=== PATIENT | male | born 1985 ===

== ENCOUNTER 2018-10-31 18:11 | Inpatient (IN) | payer OTHER ==
[2018-10-31 18:37] VITALS: BMI 31.5
--- NOTE | 2018-10-31 19:40 | ED PDOC ---
Arrival/HPI <AmandoMatias - Last Filed: 10/31/18 21:46> - General Historian: Patient - History of Present Illness Narrative History of Present Illness (Text): 10/31/18 19:38 33 yo M presents to the ER after injuring his L knee during a basketball game today. He went to [facility], had XRs done, told he had a patella dislocation, they attempted to reduce without success and was sent to the ER for further evaluation. Patient has a copy of his XRs with him. Otherwise he reports no distal numbness, no other injury, no LOC, no other joint pain. Has no other complaints. PMD Ali <Pham Mckay PA-C - Last Filed: 10/31/18 23:12> - General Chief Complaint: Lower Extremity Problem/Injury Time Seen by Provider: 10/31/18 18:40 Past Medical History - Infectious Disease Hx of Infectious Diseases: None - Psychiatric Hx Substance Use: No <Pham Mckay PA-C - Last Filed: 10/31/18 23:12> Family/Social History Family/Social History: No Known Family HX Smoking Status: Current Some Days Smoker Hx Alcohol Use: Yes Frequency of alcohol use: Socially Hx Substance Use: No <Pham Mckay PA-C - Last Filed: 10/31/18 23:12> Allergies/Home Meds <AmandoMatias - Last Filed: 10/31/18 21:46> <Pham Mckay PA-C - Last Filed: 10/31/18 23:12> Allergies/Adverse Reactions: Allergies No Known Allergies Allergy (Verified 10/31/18 18:37) Review of Systems - Review of Systems Constitutional: absent: Fatigue, Fevers Respiratory: absent: SOB, Cough Cardiovascular: absent: Chest Pain, Palpitations Gastrointestinal: absent: Abdominal Pain, Diarrhea, Vomiting Genitourinary Male: absent: Dysuria, Frequency Musculoskeletal: Arthralgias, Joint Swelling. absent: Back Pain, Neck Pain Skin: absent: Rash, Pruritis, Skin Lesions Neurological: absent: Headache, Dizziness <Pham Mckay PA-C - Last Filed: 10/31/18 23:12> Physical Exam Vital Signs Temp Pulse Resp BP Pulse Ox 10/31/18 18:11 99.2 F 75 18 122/68 98 <Matias Goel - Last Filed: 10/31/18 21:46> Vital Signs Temp Pulse Resp BP Pulse Ox 10/31/18 18:11 99.2 F 75 18 122/68 98 Temperature: Afebrile Blood Pressure: Normal Pulse: Regular Respiratory Rate: Normal Appearance: Positive for: Well-Appearing, Non-Toxic, Comfortable Pain Distress: None Mental Status: Positive for: Alert and Oriented X 3 - Systems Exam Head: Present: Atraumatic, Normocephalic Pupils: Present: PERRL Extroacular Muscles: Present: EOMI Conjunctiva: Present: Normal Mouth: Present: Moist Mucous Membranes Neck: Present: Normal Range of Motion Respiratory/Chest: Present: Clear to Auscultation, Good Air Exchange. No: Respiratory Distress, Accessory Muscle Use Cardiovascular: Present: Regular Rate and Rhythm, Normal S1, S2. No: Murmurs Abdomen: No: Tenderness, Distention, Peritoneal Signs Back: Present: Normal Inspection Upper Extremity: Present: Normal Inspection. No: Cyanosis, Edema Lower Extremity: Present: NORMAL PULSES, Swelling (+edema to the L knee, patella noted to be dislocated, patient unable to flex the knee, the L leg is fully extended at this time), Deformity, Neurovascularly Intact, Capillary Refill < 2 s. No: Temperature Abnormalties Neurological: Present: GCS=15, CN II-XII Intact, Speech Normal, Normal Sensory Function Skin: Present: Warm, Dry, Normal Color. No: Rashes Psychiatric: Present: Alert, Oriented x 3, Normal Insight, Normal Concentration <Pham Mckay PA-C - Last Filed: 10/31/18 23:12> Medical Decision Making - RAD Interpretation Radiology Orders: 10/31/18 18:49 KNEE WITH PATELLA LEFT 3 VIEW [RAD] Stat 10/31/18 19:34 EXT LOWER W/O CONTRAST LEFT [CT] Stat <Matias Goel - Last Filed: 10/31/18 21:46> ED Course and Treatment: 10/31/18 19:35 XR L knee ordered. XR L knee : +high rising patella, no fracture. Case d/w Dr. Rhodes, recommends, CT of the LLE, to place a knee immobilizer. CT scan of LLE ordered. 10/31/18 21:02 Case d/w Dr. Rhodes, he agrees to admit the patient and plan to do the surgery on Friday. Request that the patient be admitted under the medical service for medical clearance. IV, Labs, EKG, CXR ordered. Case d/w Dr. Gomez, agrees to admit the patient. EKG: NSR at 67 bpm, (-) acute ST changes, as read by PA. CXR : NAD, as read by PA Labs reviewed and noted to be within normal limits. EXAM: CT left Knee, without IV contrast IMPRESSION: 1. Slight supralateral dislocation of the patellarelative to the knee joint. 2. Marked anterolateral prepatellar soft tissue swelling noted. 3. Anteromedial infrapatellar subcutaneous hematoma is present. 4. A small suprapatellar effusion is noted. Electronically signed on October 31, 2018 9:51:56 PM EDT by: Ceasar Kebede M.D., M.B.A., Certified By [employer] Trained MRI and CT Specialist - RAD Interpretation Radiology Orders: 10/31/18 18:49 KNEE WITH PATELLA LEFT 3 VIEW [RAD] Stat 10/31/18 19:34 EXT LOWER W/O CONTRAST LEFT [CT] Stat <Pham Mckay PA-C - Last Filed: 10/31/18 23:12> - PA / CLINICAL APPLICATIONS MANAGER / Resident Statement RITA has reviewed & agrees with the documentation as recorded. RITA has examined the patient and agrees with the treatment plan. <Matias Goel - Last Filed: 10/31/18 21:46> - PA / CLINICAL APPLICATIONS MANAGER / Resident Statement RITA has reviewed & agrees with the documentation as recorded. <Pham Mckay PA-C - Last Filed: 10/31/18 23:12> Disposition/Present on Arrival <Matias Goel - Last Filed: 10/31/18 21:46> - Present on Arrival Any Indicators Present on Arrival: No History of DVT/PE: No History of Uncontrolled Diabetes: No Urinary Catheter: No History of Decub. Ulcer: No History Surgical Site Infection Following: None - Disposition Have Diagnosis and Disposition been Completed?: Yes Disposition Time: 21:00 Patient Plan: Admission <Pham Mckay PA-C - Last Filed: 10/31/18 23:12> - Disposition Diagnosis: Dislocation of left patella, Patellar tendon rupture Disposition: HOSPITALIZED Patient Problems: Current Active Problems Problem Status Onset Dislocation of left patella Acute Patellar tendon rupture Acute Condition: STABLE
[2018-10-31 21:37] LABS: BASO # 0.04 K/mm3 (0.0-2.0); BASO % 0.4 % (0.0-3.0); EOS % 0.2 % (1.5-5.0); HEMOGLOBIN 14.1 g/dL (14.0-18.0); LYMPH # 2.1 (1.2-3.4); LYMPH % 20.9 % (22.0-35.0); MEAN CELL VOLUME 87.3 fl (80.0-105.0); MEAN CORPUSCULAR HEMOGLOBIN 29.8 pg (25.0-35.0); MEAN CORPUSCULAR HGB CONC 34.1 g/dl (31.0-37.0); MEAN PLATELET VOLUME 10.3 fl (7.0-11.0); MONO # 0.7 (0.1-0.6); MONO % 7.4 % (1.0-6.0); RBC 4.73 10^6/uL (3.5-6.1); RED CELL DISTRIBUTION WIDTH 13.5 % (11.5-14.5); WHITE BLOOD COUNT 9.8 10^3/uL (4.5-11.0)
[2018-10-31 21:46] LABS: INR 1.05; PARTIAL THROMBOPLASTIN TIME 34.4 Seconds (26.9-38.3); PROTHROMBIN TIME 11.7 SECONDS (9.4-12.5)
[2018-10-31 22:19] LABS: ALB/GLOB RATIO 1.4 (1.1-1.8); ALBUMIN 4.2 g/dL (3.0-4.8); ALT/SGPT 18 U/L (7-56); AST/SGOT 40 U/L (17-59); BLOOD UREA NITROGEN 17 mg/dL (7-21); CALCIUM 8.9 mg/dL (8.4-10.5); GFR NON-AFRICAN AMERICAN > 60
--- NOTE | 2018-11-01 01:01 | HP ---
DATE OF EXAM: 10/31/2018 HISTORY OF PRESENT ILLNESS: This is a 33-year-old man who injured his left knee during a basketball game, [facility]. He had a patellar dislocation, they attempted to reduce it and sent to the emergency room. He needs to have surgery for that orthopedic doctors, they told the ER nurse and doctor that they are going put him in the hospital and do surgery in the next 24 to 36 hours. They put him on my service, I am on-call today. FAMILY HISTORY: No known family history. SOCIAL HISTORY: He currently smokes cigarettes. Does drink alcohol. No substance abuse. ALLERGIES: NO KNOWN DRUG ALLERGIES. REVIEW OF SYSTEMS: He tells me he has a history of testicular cancer, diabetes, hypertension in the family. He has no fatigue. No fevers. No cough. No shortness of breath. No chest pain. No palpitations. No abdominal pain, nausea, vomiting, diarrhea. No problems urinating. The left knee is very swollen and tender. No rashes or ulcers. No headache. No dizziness. PHYSICAL EXAMINATION: VITAL SIGNS: Temperature 99.2, pulse 75, respiratory rate 18, blood pressure 122/63, O2 saturation 98% room air. GENERAL: He is a well appearing, nontoxic, comfortable. Alert and oriented x3. HEENT: Head is atraumatic and normocephalic. Extraocular muscles are intact. Pupils equally reactive to light and accommodation. Throat is moist. NECK: Supple. HEART: Regular rate. Normal S1 and S2. LUNGS: Clear to auscultation bilaterally. ABDOMEN: Soft and nontender. Positive bowel sounds. EXTREMITIES: Swelling of the left knee, very swollen. Left patella noted to be dislocated, very swollen and tender. NEUROLOGIC: GCS is 15. Cranial nerves II through XII grossly intact. Speech is normal. Alert and oriented x3. SKIN: Warm and dry. LABORATORY DATA: High riding patella no fracture on x-ray of the knee. IMPRESSION AND PLAN: Doctor recommend to place the left knee immobilizer. Obtain medical clearance and Cardiology clearance before the surgery due to dislocation of left patella. He is in pain meds, Lovenox. Cardiology clearance. Ortho evaluation. We will watch him closely. Nicholas Gomez DO [facility] # [id number] KATY
[2018-11-01 07:45] LABS: HEMOGLOBIN 13.4 g/dL (14.0-18.0); MEAN CELL VOLUME 87.9 fl (80.0-105.0); MEAN CORPUSCULAR HEMOGLOBIN 29.1 pg (25.0-35.0); MEAN CORPUSCULAR HGB CONC 33.1 g/dl (31.0-37.0); MEAN PLATELET VOLUME 10.1 fl (7.0-11.0); RBC 4.61 10^6/uL (3.5-6.1); RED CELL DISTRIBUTION WIDTH 13.6 % (11.5-14.5)
[2018-11-01 08:19] LABS: ALB/GLOB RATIO 1.3 (1.1-1.8); ALBUMIN 3.9 g/dL (3.0-4.8); ALT/SGPT 24 U/L (7-56); AST/SGOT 28 U/L (17-59); BLOOD UREA NITROGEN 20 mg/dL (7-21); CALCIUM 8.8 mg/dL (8.4-10.5); GFR NON-AFRICAN AMERICAN > 60
--- NOTE | 2018-11-01 09:42 | CT ---
Date of service: 10/31/2018 PROCEDURE: Left lower extremity CT. HISTORY: L knee injury, patella dislocation COMPARISON: October 31, 2018. Plain film radiographs left knee TECHNIQUE: Unenhanced study. 2.5 mm axial acquisition and display. Coronal and sagittal reconstructions. Dose report (mGy-cm): 491.78 FINDINGS: Superior dislocation of the patella relative to the femur. Large infrapatellar hematoma. Complex suprapatellar effusion with multiple loculations of fluid/hemorrhage. Contusion/soft tissue swelling at the expected location of the patellar tendon. No acute fracture. IMPRESSION: Dislocated patella relative to the femur. Complex joint effusion. Soft tissue swelling attests to the acuity of the fracture. Concordant results (preliminary interpretation) provided by [facility]IRGEN QUINTERO. Procedure Completed: 20:54. Preliminary Report: Interpreted and electronically signed: 21:51. Final Interpretation: 09:38. November 01, 2018.
--- NOTE | 2018-11-01 09:42 | RAD ---
Date of service: 10/31/2018 HISTORY: pre-op COMPARISON: No prior. FINDINGS: LUNGS: No active pulmonary disease. PLEURA: No significant pleural effusion identified, no pneumothorax apparent. CARDIOVASCULAR: No atherosclerotic calcification present Normal. OSSEOUS STRUCTURES: No significant abnormalities. VISUALIZED UPPER ABDOMEN: Normal. OTHER FINDINGS: None. IMPRESSION: No active disease.
[2018-11-01] MEDS: Enoxaparin 40 mg Syringe SC SCH (10:16)
--- NOTE | 2018-11-01 10:46 | CARD ---
APPROVED REPORT Date of service: 10/31/2018 EKG Measurement Heart [id number] <Conclusion> Normal sinus rhythm Normal Electrocardiogram
--- NOTE | 2018-11-01 11:32 | RAD ---
Date of service: 10/31/2018 PROCEDURE: Left Knee Radiographs. HISTORY: Pain. COMPARISON: October 31, 2018. CT left knee. TECHNIQUE: 2 views obtained. FINDINGS: BONES: Redemonstration patellar dislocation. JOINTS: Normal. No osteoarthritis. JOINT EFFUSION: None. OTHER FINDINGS: Soft tissue swelling attests to the acuity of the dislocation. IMPRESSION: Acute dislocation left knee.
--- NOTE | 2018-11-01 14:54 | PN ---
DATE: 11/01/2018 SUBJECTIVE: He had an accident playing basketball and dislocated his left knee. He is here for a procedure to be done on Friday. I was told that the orthopedic doctor, Dr. Mccormick, told the emergency room doctor he will do the procedure on 11/02/2018, so I am watching in the floor, it is very painful, swollen left leg. MEDICATIONS: He is on Lovenox, Toradol, Tylenol. PHYSICAL EXAMINATION: VITAL SIGNS: He has a 98.2 temperature, 70 pulse, 103/64 blood pressure, 16 respiratory rate, 90% O2 sat on room air. HEENT: Head is atraumatic, normocephalic. HEART: Regular rate. LUNGS: Decreased breath sounds. ABDOMEN: Soft. EXTREMITIES: The left leg is completely swollen. LABORATORY DATA: He has a 8 white count, 13.4 hemoglobin, 40.5 hematocrit with a 218 platelets. INR is 1.05. Sodium 140, potassium 3.8, BUN 20, creatinine is 1, GFR is greater than 60, sugar is 93, calcium is 8.8, total bili is 0.3. AST is 28, ALT is 24, alk phos 57, total protein 6.8. He had a chest x-ray that showed no active disease. He had an EKG which showed normal sinus rhythm. He had a lower extremity CAT scan, which finally reported, dislocated patella, relative to the femur, soft tissue swelling. I test the acuity of the fracture, also has the knee x-ray, showed acute dislocation of the left knee. I understand the plan is a procedure tomorrow, surgery with Dr. Mccormick, orthopedic doctors. We will watch him closely and that is the plan. Hopefully, he will do well. He is medically cleared to optimize for the procedure. Nicholas Gomez DO
[2018-11-02 07:22] LABS: HEMOGLOBIN 13.6 g/dL (14.0-18.0); MEAN CELL VOLUME 87.7 fl (80.0-105.0); MEAN CORPUSCULAR HEMOGLOBIN 29.4 pg (25.0-35.0); MEAN CORPUSCULAR HGB CONC 33.5 g/dl (31.0-37.0); RBC 4.63 10^6/uL (3.5-6.1); RED CELL DISTRIBUTION WIDTH 13.6 % (11.5-14.5); WHITE BLOOD COUNT 5.6 10^3/uL (4.5-11.0)
[2018-11-02 07:44] LABS: ALB/GLOB RATIO 1.3 (1.1-1.8); ALBUMIN 3.8 g/dL (3.0-4.8); ALT/SGPT 18 U/L (7-56); AST/SGOT 20 U/L (17-59); BLOOD UREA NITROGEN 15 mg/dL (7-21); CALCIUM 8.5 mg/dL (8.4-10.5); GFR NON-AFRICAN AMERICAN > 60
--- NOTE | 2018-11-02 09:48 | MRI ---
MRI left knee HISTORY: Displaced patella. COMPARISON: CT dated 10/31/2018 Technique: Multi-echo multiplanar sequences were performed through the left knee without the use of intravenous contrast. Findings: Complete rupture of the patellar tendon with 1.4 centimeter retraction of the patellar tendon from its insertion on the inferior patella. Complete tearing of the medial patellar retinaculum with lateral displacement of the patella. Partial tearing with strain of the lateral patellar retinaculum. Large amount of fluid and hemorrhage seen within the suprapatellar recess extending extra-articularly along the medial proximal tibia. Large amount of fluid within the prepatellar soft tissues. In addition, there appears to be large amount of hemorrhage measuring 4.2 x 2.0 x 6.8 centimeters along the medial aspect of the anteromedial aspect of the joint space. Moderate grade muscle strains of the vastus medialis and lateralis muscles. Moderate grade sprain of the anterior cruciate ligament with some interstitial delamination. Posterior cruciate ligament is preserved. Linear intrasubstance degeneration in the posterior horn of the medial meniscus without gross tear. Globular intrasubstance degeneration in the posterior horn of the lateral meniscus. Low-grade sprain of the medial collateral ligament. Lateral collateral ligament complex structures are preserved. Moderate distal quadriceps tendinopathy. Patellar cartilage is preserved. Femorotibial articular cartilage is preserved. Impression: 1. Complete rupture of the patellar tendon with 1.4 centimeter retraction of the patellar tendon from its insertion on the inferior patella. 2. Complete tearing of the medial patellar retinaculum with lateral displacement of the patella. Partial tearing with strain of the lateral patellar retinaculum. 3. Large amount of fluid and hemorrhage seen within the suprapatellar recess extending extra-articularly along the medial proximal tibia. Large amount of fluid within the prepatellar soft tissues. In addition, there appears to be large amount of hemorrhage measuring 4.2 x 2.0 x 6.8 centimeters along the medial aspect of the anteromedial aspect of the joint space. 4. Moderate grade muscle strains of the vastus medialis and lateralis muscles. 5. Moderate grade sprain of the anterior cruciate ligament with some interstitial delamination. 6. Linear intrasubstance degeneration in the posterior horn of the medial meniscus without gross tear. Globular intrasubstance degeneration in the posterior horn of the lateral meniscus. 7. Low-grade sprain of the medial collateral ligament. 8. Moderate distal quadriceps tendinopathy.
[2018-11-02] MEDS: Enoxaparin 40 mg Syringe SC SCH (11:06)
--- NOTE | 2018-11-02 14:04 | CON ---
DATE: 11/02/2018 CARDIOLOGY CONSULTATION HISTORY OF PRESENT ILLNESS: The patient is a 33-year-old male who sustained a knee injury playing basketball with his nephews. PAST MEDICAL HISTORY: The patient's past medical history is free of cardiac or pulmonary disease. There is no hypertension, no diabetes mellitus, no previous cardiac history. The patient used to exercise regularly, but now given his new fatherhood as well as his sedentary lifestyle, the patient has not exercised until this episode. SOCIAL HISTORY: The patient does not smoke. REVIEW OF SYSTEMS: A 14-point review of systems is reviewed in detail. No cardiac symptomatology is noted. CURRENT MEDICATIONS: The patient is on no medications. PHYSICAL EXAMINATION: VITAL SIGNS: Blood pressure is 131/72, the heart rate is in the 60s. NECK: Negative JVD. LUNGS: Without rales. HEART: Regular S1, S2. EXTREMITIES: Traction is noted. LABORATORY DATA: Hemoglobin is 13.6, BUN and creatinine are unremarkable. IMPRESSION: 1. Rupture of the patellar tendon. 2. Fluid and hemorrhage in the suprapatellar region. 3. Sprain of the medial lateral ligament. 4. There are no cardiac contraindications to his planned surgery. Praful Connelly MD
--- NOTE | 2018-11-02 15:38 | CP.PCM.CON ---
History of Present Illness - History of Present Illness History of Present Illness: 33-year-old male with no significant PMH presents to the ER at [facility] on 10/31/18 in the evening with left knee pain and difficulty with ambulation. There is a remote history over 15 years ago, of testicular cancer treated with resection of the tumor and lymph nodes, complete remission with no evidence of recurrence. He states that earlier that day, he had a twisting injury with a fall during a recreational basketball game resulting in severe left knee pain and swelling. He denies his head striking the ground/head trauma or LOC, denies syncope. He noticed that his patella was to the side and retracted and was unable to perform any voluntary extension of his knee. He went to the urgent care, [facility] locally, he was diagnosed with left knee patellar dislocation. They attempted to reduce the patella unsuccessfully. He then proceeded to the ER at [facility] on 10/31/18 in the evening. Initial evaluation by ER staff and review of imaging, he was diagnosed with a patella tendon tear and resulting dislocated patella/instability. He was admitted to the medical service under Dr. Nicholas Gomez for definitive care and management. Today, he reports that the pain is significantly improved with the knee immobilizer placed in the ER on admission and strong pain medication available as needed. Today pain is rated 6/10 and localized to the knee joint globally with max tenderness at the patella tendon. Any attempt at active extension left knee results in 10/10 pain. He is unable to actively extend his knee. He is at baseline 100% independent in function and ADLs, community ambulator, plays recreational sports including basketball. He is an active young male. He denies recent travel, head trauma or other musculoskeletal complaints, fevers, chills, headache, nausea and vomiting, chest pain, syncope, LOC, other musculoskeletal trauma, shortness of breath, numbness or tingling, calf pain. Orthopedic consultation was placed and I evaluated the patient as an inpatient at [facility] 11/01/18. Review of imaging: x-rays done at [facility] ER 10/31/18 was read as: Acute dislocation left knee (patella dislocation). CT left knee done at [facility] ER on 10/31/18 was read as: Dislocated patella relative to the femur. Complex joint effusion. Soft tissue swelling attests to the acuity of the fracture. later addendum added by in-house radiologist, commented that there is no fracture. (Added 11/02/18) MRI left knee done at [facility] on 11/02/18 was read as: 1. Complete rupture of the patellar tendon with 1.4 centimeter retraction of the patellar tendon from its insertion on the inferior patella. 2. Complete tearing of the medial patellar retinaculum with lateral displacement of the patella. Partial tearing with strain of the lateral patellar retinaculum. 3. Large amount of fluid and hemorrhage seen within the suprapatellar recess extending extra-articularly along the medial proximal tibia. Large amount of fluid within the prepatellar soft tissues. In addition, there appears to be large amount of hemorrhage measuring 4.2 x 2.0 x 6.8 centimeters along the medial aspect of the anteromedial aspect of the joint space. 4. Moderate grade muscle strains of the vastus medialis and lateralis muscles. 5. Moderate grade sprain of the anterior cruciate ligament with some interstitial delamination. 6. Linear intrasubstance degeneration in the posterior horn of the medial meniscus without gross tear. Globular intrasubstance degeneration in the posterior horn of the lateral meniscus. 7. Low-grade sprain of the medial collateral ligament. 8. Moderate distal quadriceps tendinopathy. Past Patient History - Infectious Disease Hx of Infectious Diseases: None - Past Social History Smoking Status: Current Some Days Smoker - CARDIAC Hx Hypercholesterolemia: Yes (hx of High HDl) - MUSCULOSKELETAL/RHEUMATOLOGICAL Hx Falls: No - GENITOURINARY/GYNECOLOGICAL Other/Comment: hx of testicular cancer - PSYCHIATRIC Hx Substance Use: No - SURGICAL HISTORY Hx Surgeries: Yes - ANESTHESIA Hx Anesthesia Reactions: No Hx Malignant Hyperthermia: No Meds Allergies/Adverse Reactions: Allergies Allergy/AdvReac Type Severity Reaction Status Date / Time No Known Allergies Allergy Verified 10/31/18 18:37 - Medications Medications: Current Medications Acetaminophen (Tylenol 325mg Tab) 650 mg PO Q6H PRN PRN Reason: Fever >100.4 F Enoxaparin Sodium (Lovenox) 40 mg SC DAILY ROBERT; Protocol Last Admin: 11/02/18 11:06 Dose: Not Given Ketorolac Tromethamine (Toradol) 30 mg IVP Q6 PRN PRN Reason: Pain, moderate (4-7) Last Admin: 10/31/18 21:48 Dose: 30 mg Physical Exam - Extremities Exam Additional comments: right lower extremity: No warmth, no swelling, no erythema, skin intact, no instability +5/5 motor strength hip flexion/extension, knee flexion/extension, ankle dorsiflexion/plantar flexion, toes up and down Sensory intact L2-S1, deep peroneal nerve/superficial peroneal nerve/tibial nerve/sural nerve, 2+ dorsalis pedis pulse, brisk cap refill all toes Calves soft and nontender bilaterally Left lower extremity: Knee: + + Swelling globally at knee joint and proximal medial tibia along Pez insertion, skin intact, no warmth, no erythema Knee joint stability not tested due to pain, patella is subluxed/dislocated at superior -lateral direction with defects at nikolai patella tendon and MPFL noted/palpated +5/5 motor strength hip flexion/extension, ankle dorsiflexion/plantar flexion, toes up and down +0/5 knee extension, +5/5 knee flexion Sensory intact L2-S1, deep peroneal nerve/superficial peroneal nerve/tibial nerve/sural nerve, 2+ dorsalis pedis pulse, brisk cap refill all toes Results - Vital Signs Recent Vital Signs: Last Vital Signs Temp 98.5 F 11/02/18 14:00 Pulse 63 11/02/18 14:00 Resp 18 11/02/18 14:00 BP 114/75 11/02/18 14:00 Pulse Ox 97 11/02/18 14:00 - Labs Result Diagrams: 11/02/18 07:00 11/02/18 07:00 Labs: Laboratory Results - last 24 hr 11/02/18 11/02/18 07:00 07:00 WBC 5.6 D RBC 4.63 Hgb 13.6 L Hct 40.6 L MCV 87.7 MCH 29.4 MCHC 33.5 RDW 13.6 Plt Count 206 MPV 10.0 Sodium 139 Potassium 3.9 Chloride 106 Carbon Dioxide 26 Anion Gap 11 BUN 15 Creatinine 0.9 Est GFR ( Amer) > 60 Est GFR (Non-Af Amer) > 60 Random Glucose 100 Calcium 8.5 Total Bilirubin 0.5 AST 20 ALT 18 Alkaline Phosphatase 50 Total Protein 6.8 Albumin 3.8 Globulin 2.9 Albumin/Globulin Ratio 1.3 Assessment & Plan (1) Dislocation of left patella Assessment and Plan: 33-year-old male, left knee pain/swelling and inability to actively extend since injury on the basketball court on 10/31/18 in the evening, presented to ER at [facility] on 10/31/18 in the evening. Active, young, healthy male, plays recreational sports. DX = left knee: #1 complete patellar tendon tear (torn off of patella inferior aspect with retraction) #2 complete tear of MPFL (with resulting lateral patellar instability/subluxation/dislocation) #3 partial tear ACL/sprain (added 11/02/18) #4 possible medial meniscal tear (added 11/02/18) #5 large intra-articular hematoma with extension to Pez insertion region proximal medial tibia Plan: Left knee: -clinically, complete patella tendon tear with MPFL acute tear and resulting hematoma -Ordered stat MRI Left knee to confirm above diagnosis and rule out other internal pathology (done 11/02/18). -Indicated for surgery = left knee open patella tendon primary repair and MPFL primary repair. -the risks/benefits/alternatives to surgery were discussed at length with the patient and his , all questions were answered, patient agrees and accepts the risks and wished to proceed with surgery. -Preop for 11/02/18. Placed on elective OR schedule. Will review MRI findings with patient preop and confirmed final definitive surgical plan. -NPO after midnight -Hold DVT prophylaxis -Medical optimization and clearance, had a long discussion with Dr. Nicholas Gomez, agrees with plan and sees no medical contraindications to proceeding with general anesthesia. -Knee immobilizer at all times. Can be weightbearing as tolerated with knee immobilizer on. -left knee to be iced and elevated above the level of his heart as much as possible to help decrease swelling. -Preop labs reviewed, all acceptable and within normal limits. Preop EKG and chest x-ray reviewed, within normal limits. -Please contact me with any questions, concerns, updates at [phone] thank you for allowing me to contribute to the care of your patient. Kristian Mccormick MD Orthopedic surgery ADDENDUM 11/02/18 after MRI: -MRI reviewed, it is clear that there is a complete patellar tendon tear with retraction and avulsion off of the inferior pole of the patella, there is signal change within the substance of the patella tendon, possible tendinopathy and complex tearing. There is also complete tear of medial patellofemoral ligament confirmed with resulting superior lateral subluxation/dislocation of the patella/instability from loss of stabilization by patella tendon and medial patellofemoral ligament. There is significant signal change within the ACL with partial tearing. There is also mild signal change in the periphery of medial meniscus representing possible small tearing. Cartilaginous surface appears intact. -I spent a long time with the patient and his today discussing the risks/benefits/alternatives to the surgery again as well as our overall treatment plan while reviewing the details of the MRI findings and selected images: Treatment plan = we acknowledge the MRI findings of ACL sprain/partial tear and possible medial meniscal tear, these portions of his injury constellation are in need of urgent treatment and have a good chance at successful outcome with conservative nonoperative treatment while recovering from the initial proposed surgery. Current surgical/treatment plan is to treat the patella tendon complete tear and medial patellofemoral ligament complete tears with primary repair patella tendon and primary repair medial patellofemoral ligament to restore patellar stability and all indicated related procedures. -Placed on elective OR schedule today late afternoon -Continue NPO/IV hydration -Discussed surgical plan and medical status with primary team, Dr. Nicholas Gomez, he is in agreement. Status: Acute (2) Patellar tendon rupture Status: Acute
[2018-11-02] MEDS ORDERED: Lidocaine 1% w Epi 1:100,000 Inj ONE (16:54)
[2018-11-02] MEDS ORDERED: Bupivacaine 0.5% 50 ML IJ ONE (16:54)
[2018-11-02] MEDS ORDERED: Propofol 10 mg/ml Inj (20 ML) ONE (17:14)
[2018-11-02] MEDS ORDERED: Midazolam 2 MG/2 ML VIAL ONE (17:15)
[2018-11-02] MEDS ORDERED: Rocuronium 10 mg/ml (5 ml) ONE (17:16)
[2018-11-02] MEDS ORDERED: Succinylcholine 200 mg/10 ml Inj IV ONE (17:16)
[2018-11-02] MEDS ORDERED: Neostigmine Methylsulfate 3mg/3ml Syringe IV ONE (20:45)
[2018-11-02] MEDS ORDERED: Glycopyrrolate 0.2 mg/ml (2ml vial) ONE (20:46)
[2018-11-02] MEDS ORDERED: ceFAZolin 2 GM in Sodium Chloride 0.9% 50 ML IVPB SCH (21:30)
[2018-11-02] MEDS ORDERED: HYDROmorphone 0.5 mg/0.5 ml ISec IVP PRN (21:52)
--- NOTE | 2018-11-02 22:04 | PCM.ANESB3 ---
Femoral Nerve Block - Femoral Nerve Block Date of Procedure: 11/02/18 Anesthesiologist: Juanpablo Peterson M.D. Pre-Procedure Diagnosis: Complete tear patellar tendon, left Post-Procedure Diagnosis: Complete tear of patellar tendon, left Procedure Performed: Femoral Nerve Block Left - Procedure Femoral Nerve Block: The procedure was explained to the patient that it is for the post-operative pain management. Consent was obtained after a thorough discussion with the patient regarding the benefits and possible complications of local anesthetic block of the femoral nerve at the inguinal crease area. The patient was brought to the operating room and standard monitors were applied. Time-out was held with the circulating nurse to confirm the correct surgery and the appropriate block. Under general anesthesia, The femoral artery was then carefully palpated. The ultrasound transducer was then applied to this area in the transverse plane and the femoral nerve was visualized lateral to the femoral artery and underneath the fascia iliaca. After thorough identification, the inguinal crease area was prepped with Betadine solution three times and 1 % Lidocaine was injected subcutaneously for topical anesthesia. At this point, a #22 gauge Stimuplex 2-inch needle was inserted immediately lateral to the femoral artery pulse at the inguinal crease and advanced perpendicularly. The needle was inserted to the ultrasound transducer in-plane towards the femoral nerve in a [id number] direction. Needle advancement was performed carefully under direct ultrasound visualization. Nerve stimulator was used and twitch of the quadriceps muscle was obtained at current of .4 MA. After negative aspiration, _5____cc of _.5____% _bupivacaine was injected and this was followed with __25____ cc of __.5 % _bupivacaine . Under ultrasound guidance the local anesthetics were observed spreading below fascia iliaca and around the femoral nerve. The needle was removed intact and sterile dressing was applied. The patient had stable vital signs,, The patient tolerated the femoral nerve block well with stable vital signs.
[2018-11-02] MEDS ORDERED: Sodium Chloride 0.9% 1,000 ML IV SCH (22:30)
[2018-11-02 23:04] VITALS: RESP 18
[2018-11-02] MEDS: Oxycodone/Acetaminophen 5/325 mg Tab PO PRN (23:25)
--- NOTE | 2018-11-03 02:25 | PCM.SURG1 ---
Surgeon's Initial Post Op Note - Surgeon's Notes Surgeon: Kristian Mccormick MD Computer Networking Instructor Adjunct: Geoffrey Meyer PA-C Type of Anesthesia: General Endo, [facility] Pre-Operative Diagnosis: Left knee: #1 complete patellar tendon tear. #2 complete tear MPFL. #3 ACL partial tear/ sprain. #4 possible Medial meniscal tear. #5 large hematoma Operative Findings: Left knee: #1 complete patellar tendon tear. #2 complete tear MPFL. #3 ACL partial tear with grade 2 isntability. #4 possible Medial meniscal tear. #5 large hematoma. #6 significant synovitis all 3 compartments. #7 symptomatic medial and lateral tickened plica bands. #8 hypertrophic, inflammed fat pad (causing anterior impingement). #9 focal full thickness chondral defect at inferior pole patella ([id number]). 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 #11 disruption medial and lateral patellar retinaculum Post-Operative Diagnosis: Left knee: #1 complete patellar tendon tear. #2 complete tear MPFL. #3 ACL partial tear with grade 2 isntability. #4 possible Medial meniscal tear. #5 large hematoma. #6 significant synovitis all 3 compartments. #7 symptomatic medial and lateral tickened plica bands. #8 hypertrophic, inflammed fat pad (causing anterior impingement). #9 focal full thickness chondral defect at inferior pole patella ([id number]). 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 #11 disruption medial and lateral patellar retinaculum Operation Performed: Left knee OPEN: #1 primary repair patellar tendon. #2 primary repair MPFL. #3 VMO advancement/ proximal EMR. #4 extensive synovectomy. #5 debridement and resection hypertrophic fat pad. #6 resection and debridement medial and lateral plica bands. #7 chondroplasty and microfracture patella. #8 chondroplasty trochlea. #9 evaluation under anesthesia ACL partial tear. #10 placement in cylinder cast Specimen/Specimens Removed: specimen= plica and fat pad sent to pathology. complications= none. tourniquet time = 0min. Implants= Arthrex: FiberTak double loaded all suture anchors x2 for MPFL repair, #5 fiberwire suture for pat ellar tendon repair, #2 fiberwire suture for VMO advancement and supplemental patellar tendon repair (augmentation of repair construct) Estimated Blood Loss: EBL {In ML}: 100 Blood Products Given: N/A Drains Used: No Drains Post-Op Condition: Good Date of Surgery/Procedure: 11/02/18 Time of Surgery/Procedure: 20:00
[2018-11-03] MEDS ORDERED: ceFAZolin 2 GM in Sodium Chloride 0.9% 50 ML IVPB SCH (04:00)
[2018-11-03] MEDS: Oxycodone/Acetaminophen 5/325 mg Tab PO PRN ×2 (06:20→13:40)
[2018-11-03 07:04] LABS: HEMOGLOBIN 12.6 g/dL (14.0-18.0); MEAN CELL VOLUME 87.8 fl (80.0-105.0); MEAN CORPUSCULAR HEMOGLOBIN 29.5 pg (25.0-35.0); MEAN CORPUSCULAR HGB CONC 33.6 g/dl (31.0-37.0); MEAN PLATELET VOLUME 9.8 fl (7.0-11.0); RBC 4.27 10^6/uL (3.5-6.1); RED CELL DISTRIBUTION WIDTH 13.5 % (11.5-14.5); WHITE BLOOD COUNT 9.2 10^3/uL (4.5-11.0)
[2018-11-03 07:35] LABS: ALB/GLOB RATIO 1.2 (1.1-1.8); ALBUMIN 3.5 g/dL (3.0-4.8); ALT/SGPT 17 U/L (7-56); AST/SGOT 24 U/L (17-59); BLOOD UREA NITROGEN 13 mg/dL (7-21); GFR NON-AFRICAN AMERICAN > 60
[2018-11-03] MEDS ORDERED: ceFAZolin IV 2 gm in 50 mL D5W IVPB SCH ×2 (07:45→13:00)
--- NOTE | 2018-11-03 08:49 | RAD ---
Date of service: 11/02/2018 PROCEDURE: Fluoroscopy up to 1 hr. HISTORY: PATELLA TENDON REPAIR COMPARISON: None TECHNIQUE: Standard protocol for this study/examination. FINDINGS: Total fluoroscopic time (continuous mode) utilized during the procedure 41.7 seconds. Total exam DLP: 5.19 (mGy). IMPRESSION: Submitted images from the current procedure: 13.0 Less than 1 hr fluoroscopic assistance provided during performance of the procedure.
[2018-11-03] MEDS ORDERED: Enoxaparin 40 mg Syringe SC SCH (10:00)
[2018-11-03] MEDS ORDERED: Iohexol 240 (50 ml) ONE (10:36)
[2018-11-03] MEDS ORDERED: Bupivacaine Liposomal Inj 20 ml ONE (10:37)
[2018-11-03 14:04] VITALS: BP 115/72; PULSE 95; TEMP 98.4; O2SAT 96
--- NOTE | 2018-11-03 16:24 | OP ---
PROCEDURE DATE: 11/02/2018 PREOPERATIVE DIAGNOSES: Left knee, 1. Complete patellar tendon tear. 2. Complete tear, medial patellofemoral ligament (MPFL). 3. Anterior cruciate ligament (ACL) disease, partial tear/sprain. 4. Possible medial meniscal tear. 5. Large hematoma. 6. Subluxation/dislocation, patellar (superior lateral dislocation). POSTOPERATIVE DIAGNOSES: Left knee, 1. Complete patellar tendon tear. 2. Complete tear, medial patellofemoral ligament (with resulting superior lateral patellar dislocation). 3. Partial tear with grade 2 instability. 4. Small peripheral medial meniscal tear. 5. Large hematoma. 6. Significant synovitis, all three compartments. 7. Symptomatic medial and lateral thickened plica bands. 8. Hypertrophic, inflamed fat pad (causing anterior and patellofemoral impingement). 9. Focal full-thickness chondral defect at inferior pole patella (measuring 3 mm x 3 mm). 10. 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 11. Disruption, medial and lateral patella retinaculum. 12. Superior lateral patellar dislocation. 13. Significant prepatellar bursitis. PROCEDURE: Left knee open, 1. Primary repair, patellar tendon. 2. Primary repair, MPFL. 3. VMO (vastus medialis obliquus), advancement/proximal extensor mechanism realignment, 4. Extensive synovectomy, anterior in all three compartments. 5. Debridement and resection, hypertrophic fat pad. 6. Resection and debridement, medial and lateral symptomatic plica bands. 7. Chondroplasty and microfracture patella, chondral defect. 8. Chondroplasty trochlea. 9. Evaluation under anesthesia/examination under anesthesia, ACL partial tear. 10. Open prepatellar bursectomy. 11. Placement in cylinder cast. SURGEON: Kristian Mccormick MD IMPREGNATOR AND DRIER: GRABIEL Saucedo. JUSTIFICATION FOR IMPREGNATOR AND DRIER: Geoffrey Willoughby is a certified physician litigation legal assistant whose skilled surgical services were an absolute necessity for successful completion of the procedure as he provided skilled surgical assistance with positioning of the patient, positioning of extremity, management of surgical stallworth, retraction of neurovascular structures, preparation of patellar tendon, and preparation of patella with creation of tunnels and passage of suture and final tensioning and tightening and repair of patellar tendon, placement of suture anchors and MPFL primary repair and tightening, retinacular open repair, extensive open synovectomy, chondroplasty and microfracture patella, chondroplasty, trochlea, extensive synovectomy including resection and debridement hypertrophic fat pad and symptomatic medial and lateral plica bands, open prepatellar bursectomy, wound closure, placement of well-padded cylinder cast in full extension. Emaus Case was present for the entire case and was an absolute necessity for social completion of the procedure. TYPE OF ANESTHESIA: General endotracheal anesthesia with a postop regional nerve block placed by Anesthesia staff in PACU. ESTIMATED BLOOD LOSS: 100 mL. DRAINS: None. COMPLICATIONS: None. TOURNIQUET TIME: Zero minutes. SPECIMEN: Plica and fat pad sent for pathology as per hospital protocol. DISPOSITION: The patient was extubated and transferred to PACU in stable condition. IMPLANTS: [employer] All-suture double loaded FiberTak anchors x2 for medial patellofemoral ligament repair, #5 FiberWire suture for patellar tendon primary repair, #2 FiberWire suture for VMO advancement and supplemental patellar tendon repair augmentation. INDICATIONS FOR SURGERY: The patient is a 33-year-old male with no significant past medical history, who presented to the ER at [facility] on 10/31/2018 late in the evening with left knee pain and difficulty with ambulation. He states that earlier that day, he had a twisting injury with a fall during a recreational basketball game resulting in severe left knee pain and swelling. He denies any head trauma or LOC, denied syncope. He can recall the entire event. He noticed that his patella was to the side and retracted with a superior lateral subluxation/dislocation and he was unable to perform any voluntary extension of his knee. He had severe difficulty with ambulation. He went to a local urgent care initially, [facility] in [place], he was diagnosed with left knee patellar dislocation and multiple attempts at relocation were carried out unsuccessfully. At that point, he was referred to the ER at [facility]. After evaluation by ER staff and review of imaging, he was diagnosed with a patellar tendon tear and possible MPFL tear with resulting dislocated patella/instability. He was admitted to the medical service under Dr. Nicholas Gomez for definitive care and management. Orthopedic consultation was placed. I personally examined and evaluated the patient as an inpatient at [facility]. Physical examination was indeed consistent with a complete patellar tendon tear and MPFL tear with palpated defects at respective locations. The patella was subluxed - dislocated in the superior lateral direction with no intact medial or inferior restraints. Skin was intact. There was significant swelling/hematoma formation. Stability of the knee joint itself was not tested. He had full 5/5 motor strength, hip flexion/extension, knee flexion, ankle dorsiflexion/plantarflexion, toes up and down. He had 0/5 motor strength at any attempt at knee extension. This resulted in significant 10/10 pain as well. Sensory was intact L2-S1, superficial peroneal nerve/deep peroneal nerve/sural nerve. 2+ dorsalis pedis pulse and brisk cap refill, all toes. After initial evaluation as an inpatient and review of preliminary imaging including x-ray and CT done in the ER, clinical diagnosis of complete rupture of patellar tendon and medial patellofemoral ligament was provided and explained to the patient at length. Definitive treatment options were discussed at length with the patient. He was indicated for surgery in the form of open patellar tendon repair and medial patellofemoral ligament repair. He was referred and ordered for a stat MRI of left knee which was done at [facility] 11/02/2018 and was read as, 1. Complete rupture of the patellar tendon with 1.4 cm retraction of the patella tendon from its insertion on the inferior patella. 2. Complete tearing of the medial patellar retinaculum with lateral displacement of the patella. Partial tearing with strain of the lateral patellar retinaculum. 3. Large amount of fluid and hemorrhage seen within the suprapatellar recess extending extraarticularly along the medial proximal tibia. Large amount of fluid within the prepatellar soft tissues. In addition, there appears to be a large amount of hemorrhage measuring 4.2 x 2.0 x 6.8 cm along the medial aspect of the anteromedial aspect of the joint space. 4. Moderate grade muscle strains of the vastus medialis and lateralis muscles. 5. Moderate grade sprain of the anterior cruciate ligament with some interstitial delamination. 6. Linear intrasubstance degeneration in the posterior horn of the medial meniscus without gross tear. Globular intrasubstance degeneration in the posterior horn of the lateral meniscus. 7. Low-grade sprain of the medial collateral ligament. 8. Moderate distal quadriceps tendinopathy. I reviewed the MRI findings at length with the patient and confirmed for him with review of select imaging in person the complete patellar tendon tear and medial patellofemoral ligament tears. We reviewed the what appeared to be a partial ACL tear in my opinion as well as possible signal change at the medial meniscus. We also reviewed the large hematoma and extensive synovitis and bursitis accompanying this injury. We discussed at length treatment options including surgical treatment for the complete constellation of injury versus the more reasonable treatment plan of addressing the urgent injuries being the acute patellar tendon tear and MPFL complete tears to restore stability and function to the knee. We would evaluate the anterior cruciate ligament partial tear under anesthesia to better qualify and quantify the extent of injury. The medial meniscus and lateral meniscus would be evaluated as much as possible open as well as the chondral surface. We were in complete agreement that any ACL injury and medial or lateral meniscus tears will be treated initially conservatively and after full recovery from the surgery if he is indeed symptomatic, then consideration for future surgical intervention for either meniscus tears or ACL instability can be considered. Our surgical plan definitively heading into this procedure would consist of, 1. Open primary repair, patellar tendon. 2. Open primary repair, MPFL. 3. Examination of ACL partial tear under anesthesia. 4. Evaluation of chondral surface and treatment as indicated and all related indicated procedures. The risks, benefits, and alternatives of the procedure were discussed at length with the patient with the risks including but not limited to infection, neurovascular damage, need for further surgery, failure of MPFL or patellar tendon repair, need for further surgery including MPFL reconstruction, stiffness, need for manipulation under anesthesia, inability to return to preinjury level of activity and sports, development of chronic pain and disability, loss of function, loss of limb, development of blood clots including DVT and PE, anesthesia reactions including . After answering all his questions, he stated that he understood the risks and wished to proceed with surgery. We discussed at length the surgical technique employed and planned for as well as the surgical approach. We discussed at length the multiple parts of his diagnosis and the appropriate surgical treatment for each part of his constellation of injury. After answering all of his questions, he stated that he had a great understanding of the procedure as well as the multiple parts of this diagnosis. I reviewed at length with him the postop rehabilitation protocol including the initial immobilization followed by extensive physical therapy and home exercise program to restore his range of motion once the initial immobilization period for four weeks has been completed. He stated that he understood the need for compliance with the rehabilitation protocol postoperatively and that this would maximize his chance of having a successful outcome after surgery. Medical optimization and clearance was obtained from Dr. Nicholas Gomez. There was a remote history of testicular cancer that was treated 15 years ago successfully with surgical excision and lymph node resection with no recurrence and complete remission successfully since that surgery. He was placed on the elective OR schedule for 11/02/2018 and a procedure was done at [facility] as an inpatient after admission through emergency room on the evening of 10/31/2018. There was consideration for performing the procedure on 11/01/2018, but there was a dose of Lovenox administered in the morning. PROCEDURE IN DETAIL: The patient was identified at the preoperative holding area and the left knee was marked for surgery. Once again as described above, the risks, benefits and alternatives to the procedure was discussed at length with the patient and informed consent was obtained and confirmed. After brief discussion with Anesthesia staff, the patient was taken to the operating room and placed on a well-padded operating room table with all bony prominences and superficial neurovascular structures well padded with a radiolucent lower extremity attachment on the table. Initial time-out was done with the surgeon, anesthesia staff, OR staff, all in agreement with the patient, procedure being done and the extremity being operated on. General anesthesia was administered without difficulty or complication. Perioperative IV antibiotics were administered. Examination under anesthesia was then carried out: EXAMINATION UNDER ANESTHESIA: Left knee with full range of motion compared to contralateral knee. Patella with significant instability and superior lateral dislocation/grade 3 instability, palpated complete defects of the region of the MPFL/medial retinaculum and patellar tendon with resulting described patellar instability/subluxation/dislocation superior lateral. There was indeed significant ACL instability with grade 2 to 3 anterior drawer and external rotation with a soft endpoint, grade 2 anterior value engineer internal rotation and neutral with a firm endpoint, grade II Anastacia with a firm endpoint, grade 1 to two pivot shift, negative posterior drawer, negative reverse Anastacia, negative reverse pivot shift, negative opening to medial or lateral joint line at 0 or 30 degrees of varus or valgus stress, skin intact, There was a small abrasion at the inferior medial aspect of the knee inferior to the medial joint line that appeared to be clean and intact. There was significant ecchymosis and small abrasions at the posterior lateral aspect of the knee joint as well. Negative recurvatum, negative dial test, negative posterior lateral corner drawer test. CONTINUATION OF PROCEDURE: A tourniquet was placed high on the left thigh, but never inflated. The left lower extremity was prepped and draped in standard sterile fashion. Final time-out was done with the surgeon, anesthesia staff, OR staff all in agreement with the patient, procedure being done, and the extremity being operated on. A medial parapatellar approach was carried out to the knee joint. The incision started just superior to the level of the superior pole of the patella extending just medial to the midline of the knee to avoid kneeling pain on the scar. After the surgical incision healed, the incision extended to the level of the tibial tuberosity measuring approximately 8 cm in length. Incision was made through skin down to subcutaneous tissue maintaining good hemostasis down to level of the first layer of the knee joint/retinaculum/fascia. The medial and lateral subcutaneous tissue was then elevated above the level of the fascia. The prepatellar bursa was evaluated carefully and found to have significant hypertrophic bursitis and posttraumatic bursitis. Starting at the superior pole of patella, the soft tissue was carefully evaluated and indeed there appeared to be complete disruption of the medial retinaculum with complete avulsion of the medial patellofemoral ligament from the superior medial aspect of the patella starting at the 9 o'clock to 11 o'clock region. The [place] medial patellofemoral ligament could be palpated as thickened. Ligamental folds between the thickened ligamentous folds were identified and palpated within a layer or two of the knee after careful blunt dissection was carried out dividing layers two and three distinctly from each other to also provide a soft tissue buttress between the nonabsorbable suture that will be used for the primary MPFL repair and the intra-articular/chondral surface from irritation from the suture. Once the layer or two was identified and MPFL fibers were identified and confirmed not only be torn from the medial patella, but also to be of good quality tissue and preserved, then tagging suture was placed directly at the MPFL to allow ease of identification later on during MPFL repair. The residual intact retinacular fibers were detached to allow for access to these medial and superior medial aspect of the patella for the primary MPFL repair. The [place] insertion of the medial patellofemoral ligament starts at the equator of the medial aspect of the patella and extend superiorly to about the 10/11 o'clock position. This region was debrided and prepared for ease of placement of the suture anchors. Attention was then turned towards identifying and examining the patellar tendon tear. The patellar tendon appeared to be a complex tear with significant laminar and secondary tears throughout the injury. 80% of the patellar tendon fibers appeared to be a direct avulsion of the inferior pole of the patella while the more anterior/superficial fibers of the patellar tendon appeared to be torn mid body and remained attached to the inferior pole of the patella. There was significant hematoma throughout the intraarticular region as well as the proximal medial aspect along the pes insertion and lateral soft tissue. Initially, approximately 3000 mL of normal saline used to completely irrigate intraarticular and extraarticular region of the knee joint evacuating and removing all of the hematoma tissue from the surgical region. Once this was completed to satisfaction and the soft tissue planes were carefully examined, we then turned our attention to initiating primary repair of the medial patellofemoral ligament. We continue to evaluate the synovium and fat-pad intra-articular structures. There was significant hypertrophic and inflamed synovitis that appeared to be post-traumatic in nature throughout the entire anterior aspect of the knee joint throughout all three compartments. There was symptomatic medial and lateral plica bands appearing to cause friction with the medial and lateral femoral condyles. The infrapatellar fat pad appear to also have significant hypertrophy and inflammation with resulting anterior and patellofemoral impingement. We then proceeded with an extensive synovectomy removing all of the inflamed synovial tissue and plica bands as well as debridement and resection of the hypertrophic/inflamed fat pad. OPEN EXTENSIVE SYNOVECTOMY: With use of the Bovie and sharp dissection, an open extensive three-compartment anterior synovectomy was carried out removing all of the posttraumatic synovitis and inflamed tissue that appeared to be a significant pain generator for the patient. There was symptomatic medial and lateral hypertrophic inflamed plica bands that were resected and debrided. These symptomatic plica bands appeared to be causing friction with the medial and lateral femoral condyle chondral surface. The infrapatellar fat pad also appeared to be significantly inflamed and hypertrophic in nature causing anterior and patellofemoral impingement. Once the extensive synovectomy was completed, satisfaction and good hemostasis was achieved. It was clear that a significant amount of surgical time was dedicated to this portion of procedure as an independent open extensive synovectomy. This was beyond what is considered usual and customary for better visualization during open knee surgery as it was an unusual amount of hypertrophic inflamed synovitis, hypertrophic inflamed fat pad causing impingement and hypertrophic inflamed medial and lateral plica bands. We then continued with initial medial patellofemoral ligament repair. OPEN MPFL PRIMARY REPAIR: The medial and superior medial aspect of the patella was debrided of overlying soft tissue. Care was taken to repair the underlying layer III of the knee joint being the knee capsule to act as a buffer between the nonabsorbable suture use for the MPFL repair and the articular surface. The remnant of the knee capsule adherence to the medial patella was repaired to the divided out capsule of the knee joint medially. Once this capsular layer was repaired with #1 Vicryl suture, we then prepared the medial and superior medial aspect of the patella for the direct/primary MPFL repair. Two double-loaded FiberTak All-suture anchors 2.6 mm in width were selected from [employer]. The accompanying 2.0 drill was used to pre drill the insertion point for the All-suture anchors. The first anchor was placed at the superior medial aspect of the patella corresponding with the 10 o'clock/11 o'clock position on the clock face. Optimal positioning and trajectory for the drill guide was selected and the drill guide was drilled down to stop with the guide in position. The drill was removed and the 2.6-mm All-suture anchor from [employer] double loaded was then impacted into the pilot highway patrol hole with good fixation achieved and pull-out strength of the anchor was tested and indeed there was good fixation. We then turned our attention to placement of the midpoint medial anchor with the same steps repeated and trajectory of the drill guide and drilled confirmed under direct fluoroscopic arthroscopy to avoid convergence of the pre-drilled path for the suture anchors as well as awareness of where the pre-drilled paths would be to avoid intersecting with our tunnels created for the suture passage for the patellar tendon repair. Once both anchors were placed with good fixation achieved, the ends of the suture were then passed through the MPFL as mattress sutures with good fixation achieved. To ensure good final tensioning, the suture was clamped and the MPFL repair would be completed at the end of the procedure after the patellar tendon repair was completed. OPEN AND CHONDROPLASTY AND MICROFRACTURE: The chondral surface of the patella and trochlea was examined in detail as well as the rest of the chondral surface of the knee. The medial compartment and lateral compartment chondral surface was found to be intact under direct open visualization. The trochlea exhibited a central area measuring 6 mm x 9 mm of grade II to III chondromalacia/II to III chondral injury with no full-thickness defects seen. There was overlying fibrillation and unstable chondral fragments. With the use of a curette and handheld shaver, chondroplasty of the central aspect of the trochlea was carried out establishing a smooth contour to the articular surface. The inferior pole of the patella also exhibited a zone of focal full-thickness chondral injury measuring 3 mm x 3 mm at its inferior pole. With the use of a curette, the region of full-thickness chondral injury was debrided and a stable rim of cartilage was created. With the use of 1-mm K-wires, an open microfracture of this region of injury was carried out successfully with good bloody and fatty return seen. There was good spacing between the microfracture holes and a successful microfracture had been completed at the patella with chondroplasty. OPEN PREPATELLAR BURSECTOMY: As described above, the prepatellar bursa exhibited significant hypertrophic bursitis with retained bursitis fluid and hematoma mixture. Once this was irrigated copiously, the bursa tissue was carefully evaluated and found to be significantly hypertrophic with posttraumatic bursitis present. With the use of the Bovie and sharp excision as well, an open bursectomy was carried out with maintaining good hemostasis. Once the open bursectomy was completed to satisfaction and normal looking bursal tissue resulting with good hemostasis, attention was then turned towards preparation of the patellar tendon. OPEN PRIMARY PATELLAR TENDON REPAIR: The patella tendon tear was complex in nature with secondary laminar tears seen. 80% of the fibers being the more deep and posterior fibers of the patellar tendon were a direct avulsion off the inferior pole of the patella with good quality patellar tendon tissue seen. The remaining 20% of the fibers being the more anterior and superficial fibers were torn mid substance with significant tendinopathy tissue seen. These fibers were still attached to the inferior pole of the patella but completely torn from the mid substance to the inferior aspect of the patellar tendon. These anterior fibers were preserved and although of poor quality were used to augment and supplement the primary patellar tendon repair towards the end of the procedure. With the anterior fibers reflected and removed from harm's way, attention was turned towards preparation of the patellar tendon itself. With the paratenon sharply incised and reflected medial and lateral and preserved for future repair, we turned our attention to placement of the baseball style whipstitch configuration. A #5 FiberWire suture was placed starting on the medial aspect of the patellar tendon working from proximal to distal with locking baseball stitch configuration resulting with good stability and automation tender of the patellar tendon achieved. The same suture was then brought back from distal to proximal with the same locking baseball stitch configuration and exiting at the proximal end of the patellar tendon. This step was then repeated again at the lateral aspect of the patellar tendon with four suture ends at #5 FiberWire exiting the proximal aspect of the patellar tendon with good fixation and automation tender of the patellar tendon achieved. Attention was then turned towards creation of the tunnels for passes of the suture through the patella itself. We started with placement of the medial tunnel working from distal to proximal with the use of a 1.5 mm drill. The drill was advanced with care taken not to perforate the articular surface and stay within the anterior aspect of the patella. The drill was passed from inferior to superior and seen on the other side of the patella. A sharp longitudinal incision was made through the quadriceps distal insertion and the underlying drill was identified and preserved and dissected out with blunt dissection. The drill was left in place. This step was repeated for placement of the central drill and placement of the lateral drill tunnel. With all three drills in position, fluoroscopic imaging was taken to confirm that there was no intra-articular extension and that the drill bits stayed within the anterior aspect of the patella bony substance itself. We also, under magnification, confirmed that we were able to avoid our All-suture anchor drill points from the MPFL repair. The stability of the anchors were tested as well to confirm that there were not disrupted or torn with the tunneled drilling. Sequentially, the drill bits were removed and a Mooney suture passer was passed through each tunnel and a FiberLoop suture was pulled through as our passing sutures through each tunnel. The wound was copiously irrigated once again with 1000 mL of normal saline. The most medial suture was passed through the most medial tunnel through the patella successfully. One FiberWire end from the medial and one FiberWire end from the lateral ends of the whipstitch through the patella tendon were passed through the middle tunnel, and finally one of the lateral end suture were passed through the lateral tunnel. One end from each suture was then brought over to the medial and lateral direction underneath the quadriceps tendon, and under direct visualization with the knee held at 0 degrees extension and good tension achieved on the patellar tendon, the suture were tied down around the superior pole of the patella successfully with good stability achieved. With this primary repair construct, the knee was brought to nearly 70 degrees flexion with no gapping or instability seen. The knee was brought back to 0 degrees extension and we continued with augmentation of our repair construct. #2 FiberWire suture was used to repair the anterior fibers of the patellar tendon to the underlying patellar tendon posterior fibers that were repaired successfully. After this construct was augmented, we then turned our attention to final tensioning of the MPFL. With the knee held at 30 degrees, flexion and stability of the patellar tendon tested. The sutures that were passed through the MPFL, connected the suture anchors were tied down sequentially with care taken not to overtighten the MPFL and stiffness and tight patellofemoral compartment. Once all four sutures of the MPFL primary repair were tied down successfully, we then turned our attention to the VMO advancement and supplemental augmentation to the repair construct. Of note, it was important to confirm that from an intra-articular standpoint, there was no nonabsorbable suture either from the patellar tendon repair or from the MPFL repair that was rubbing against any chondral tissue well contained superficial to layer three being the capsule of the knee joint. With a [id number] configuration, the VMO was advanced over the superior medial aspect of the patella augmenting the MPFL repair and providing more proximal stability. Once this was completed to satisfaction, we then continued with medial and lateral retinacular repairs with #1 Vicryl suture. The paratenon was repaired over the patellar tendon as much as possible with #1 Vicryl suture. The wound was copiously irrigated both with Irrisept antibiotic irrigation as well as another 1000 mL of normal saline. Good hemostasis was achieved and then we began with our primary closure of the wound. #1 Vicryl suture was used for deep tissue followed by 2-0 Vicryl suture for subcutaneous tissue followed by juma for skin. The small longitudinal incisions through the distal quadriceps tendon were also repaired with #1 Vicryl suture burying the FiberWire knot stack as well. Sterile dressings were applied followed by a layer of sterile cast padding from the medial and lateral malleoli up to the superior thigh. A well-padded cylinder cast was then placed starting at the medial and lateral malleoli extending to the superior thigh with a good mold achieved. Once the cast hardened, the patient was awakened from general anesthesia and transferred to PACU in stable condition and tolerated the procedure well. DISPOSITION: The patient will remain as an inpatient overnight. He will receive a dose of Lovenox 40 mg subcutaneous injection as DVT prophylaxis starting postoperative day #1. He will be given a prescription for 2-week course of 40 mg once daily subcutaneous injection as DVT prophylaxis at home. He will receive a prescription for Percocet for pain control once he goes home, and in the interim, will receive adequate pain control as an inpatient. He is instructed to be weightbearing as tolerated with the cylinder cast in position. Cast care was discussed at length with the patient. He will follow up in my office at [facility] within 1 week and already has his postoperative appointment set up. I will monitor his progress as an inpatient until he is discharged next day after he works with physical therapy and confirm safe ambulation on his own. Kristian Mccormick MD
--- NOTE | 2018-11-04 03:18 | DS ---
HISTORY OF PRESENT ILLNESS: He came in with a very bad left knee after playing basketball. He had a ruptured patellar tendon and multiple other issues. He just came from surgery yesterday. He is in a hard cast right now. He was given some cefazolin. He is on Lovenox, Percocet, and IV fluids. He had Toradol and Tylenol. He is resting comfortably in bed. He is eating some [employer] sandwich. He is in good spirits. I was told by ortho he could be discharged today. PHYSICAL EXAMINATION: VITAL SIGNS: He has a 99.5 temperature, 103 pulse, 101/62 blood pressure, 18 respiratory rate, and 95% O2 sat on room air. HEENT: Head is atraumatic and normocephalic. HEART: Regular rate. LUNGS: Clear to auscultation. ABDOMEN: Soft. EXTREMITIES: Left leg is in a cast. LABORATORY DATA: He has a sodium 137, potassium 3.7, BUN 30, creatinine 0.9, GFR is greater than 60, sugar was 118, and calcium is 8. Total bili is 0.5. AST is 24, ALT is 17, alk phos 44, and total protein 6.3. White count is 9.2, hemoglobin 12.6, hematocrit 37.5, and platelets are 210. ASSESSMENT AND PLAN: He will be discharged today if it is okay with Orthopedics, medications by Orthopedics, and follow up with Orthopedics. He will also follow up with his primary care doctor and he should be able to be discharged today. Alexis Almanza who had trauma to his left knee and status post orthopedic surgery for ruptured patellar tendon and repair. Nicholas Gomez DO
== END 2018-11-03 18:08 | disposition home or self-care (01) | DRG 489 ==
LOC: ED 18:11 → ERH 21:27 → 5RSO 23:18
PROVIDERS: ADMIT Family Medicine; ATTEND Family Medicine
PROC: 3E0T3BZ Introduction of Anesthetic Agent into Peripheral Nerves and Plexi, Percutaneous Approach (ICD-10-PCS; 2018-11-02)
PROC: 0SBD0ZZ Excision of Left Knee Joint, Open Approach (ICD-10-PCS; principal; 2018-11-03)
PROC: 0LSR0ZZ Reposition Left Knee Tendon, Open Approach (ICD-10-PCS; 2018-11-03)
PROC: 0MBP0ZZ Excision of Left Knee Bursa and Ligament, Open Approach (ICD-10-PCS; 2018-11-03)
PROC: 0SQD0ZZ Repair Left Knee Joint, Open Approach (ICD-10-PCS; 2018-11-03)
DX: S83.015A Lateral dislocation of left patella, initial encounter (principal); S83.412A Sprain of medial collateral ligament of left knee, initial encounter; S83.512A Sprain of anterior cruciate ligament of left knee, initial encounter; S83.242A Other tear of medial meniscus, current injury, left knee, initial encounter; M70.42 Prepatellar bursitis, left knee; F17.210 Nicotine dependence, cigarettes, uncomplicated; E78.00 Pure hypercholesterolemia, unspecified; Y93.67 Activity, basketball; X50.1XXA Overexertion from prolonged static or awkward postures, initial encounter; Z85.47 Personal history of malignant neoplasm of testis